=== PATIENT | male | born 1940 | race Caucasian/White ===

== ENCOUNTER 2018-04-13 17:03 | Inpatient (IN) | payer MEDICARE ==
[~2018-04-13] VITALS: Ht 175.3 cm; Wt 84.1 kg
--- NOTE | ~2018-04-13 | MORECARE ---
CASE MANAGEMENT DISCHARGE SUMMARY PATIENT: Keturah YAÑEZ UNIT: [id number] ADM DATE: 04/13/18 AGE: 78 : 38 SEX: M ROOM/BED: D.2238 AUTHOR: JOAN HAYNES PHYSICIAN: REFERRING PHYSICIAN: GREER SEBASTIAN MD DATE OF SERVICE: 04/15/18 Discharge Plan Patient Name: Keturah YAÑEZ [facility] [facility] 1940 Planned Disposition: Home Anticipated Discharge Date: Discharge Date: Expected LOS: Initial Reviewer: [email or web address] Initial Review Date: 04/14/2018 Generated: 04/15/18 12:54 pm DCP- Discharge Planning Updated by [email or web address]: Angelina Swenson on 04/14/18 10:[address] Spoke with Muriel at the [facility] in [place] and informed of admission to our hospital last night. She took admitting information and states he is on the list. CM will continue to follow and assist with discharge planning/needs. Last DP export: 04/14/18 10:34 a Patient Name: Keturah YAÑEZ Page [id number] at 1154 All edits/amendments must be made on the electronic document DICTATION DATE: 04/15/18 115 BELT REPAIRER: JANEE 04/15/18 1154 RPT#: [id number] DC DATE: STATUS: ADM IN [facility] [address] [place] [address] END OF REPORT
--- NOTE | ~2018-04-13 | MORECARE ---
CASE MANAGEMENT DISCHARGE SUMMARY PATIENT: Keturah YAÑEZ UNIT: [id number] ADM DATE: 04/13/18 AGE: 78 : 38 SEX: M ROOM/BED: D.2238 AUTHOR: JOAN HAYNES PHYSICIAN: REFERRING PHYSICIAN: GREER SEBASTIAN MD DATE OF SERVICE: 04/15/18 Discharge Plan Patient Name: Keturah YAÑEZ Facility: [facility]:[place] : 1940 Planned Disposition: Home Anticipated Discharge Date: Discharge Date: Expected LOS: Initial Reviewer: [email or web address] Initial Review Date: 04/14/2018 Generated: 04/15/18 1:02 pm Comments DCP- Discharge Planning Updated by [email or web address]: Angelina Swenson on 04/15/18 10:[address] Patient Name: Keturah YAÑEZ Admission Status: ER Accout number: [id number] Admission Date: 04-13-2018 : 1940 Admission Diagnosis: Attending: GRERE SEBASTIAN Current LOS: 2 Anticipated DC Date: Planned Disposition: Home Primary Insurance: MEDICARE A & B Discharge Planning Comments: CM met with patient to discuss discharge planning, he is alone in the room. States he lives alone. States he is independent with all ADL's and IADL's. States his daughter, Regla, will drive him home at discharge. States he does have a nebulizer that he uses PRN and the [facility] supplies the neb meds. States he does not have any other DME or need any DME. I discussed home health and he declines at this time. No needs identified. CM will continue to follow and assist with discharge planning/needs. Account Analyst: Angelina Swenson DCP- Discharge Planning Updated by [email or web address]: Angelina Swenson on 04/14/18 10:[address] Spoke with Muriel at the [facility] in [place] and informed of admission to our hospital last night. She took admitting information and states he is on the list. CM will continue to follow and assist with discharge planning/needs. DCPIA - Discharge Planning Initial Assessment Updated by [email or web address]: Angelina Swenson on 04/15/18 11:54 am * Is the patient Alert and Oriented? Yes * How many steps to enter\exit or inside your home? 2/0 * PCP [facility] or [place] * [facility] * Preadmission Environment Home Alone * ADLs Independent * Equipment Nebulizer * List name and contact numbers for known caregivers / representatives who currently or will assist patient after discharge: Regla Garces - R - [phone] * Verbal permission to speak to the caregivers and representatives has been obtained from the patient. Yes * Community resources currently utilized None * Additional services required to return to the preadmission environment? No * Can the patient safely return to the preadmission environment? Yes * Has this patient been hospitalized within the prior 30 days at any hospital? No Last DP export: 04/15/18 10:54 a Patient Name: Keturah YAÑEZ Page [id number] at 1202 All edits/amendments must be made on the electronic document DICTATION DATE: 04/15/18 1202 GLOBAL PROCESS OWNER: JANEE 04/15/18 1202 RPT#: [id number] DC DATE: STATUS: ADM IN [facility] [address] [place] [address] END OF REPORT
--- NOTE | ~2018-04-13 | MORECARE ---
CASE MANAGEMENT DISCHARGE SUMMARY PATIENT: Keturah YAÑEZ UNIT: [id number] ADM DATE: 04/13/18 AGE: 78 : 38 SEX: M ROOM/BED: D.2238 AUTHOR: JOAN HAYNES PHYSICIAN: REFERRING PHYSICIAN: GREER SEBASTIAN MD DATE OF SERVICE: 04/15/18 Discharge Plan Patient Name: Keturah YAÑEZ Facility: [facility]:[place] : 1940 Planned Disposition: Home Anticipated Discharge Date: Discharge Date: 04/15/2018 Expected LOS: 0 Initial Reviewer: [email or web address] Initial Review Date: 04/14/2018 Generated: 04/15/18 4:28 pm Comments DCP- Discharge Planning Updated by [email or web address]: Angelina Swenson on 04/15/18 10:[address] Patient Name: Keturah YAÑEZ Admission Status: ER Accout number: [id number] Admission Date: 04-13-2018 : 1940 Admission Diagnosis: Attending: GREER SEBASTIAN Current LOS: 2 Anticipated DC Date: Planned Disposition: Home Primary Insurance: MEDICARE A & B Discharge Planning Comments: CM met with patient to discuss discharge planning, he is alone in the room. States he lives alone. States he is independent with all ADL's and IADL's. States his daughter, Regla, will drive him home at discharge. States he does have a nebulizer that he uses PRN and the [facility] supplies the neb meds. States he does not have any other DME or need any DME. I discussed home health and he declines at this time. No needs identified. CM will continue to follow and assist with discharge planning/needs. Technical Support Professional: Angelina Swenson DCP- Discharge Planning Updated by [email or web address]: Angelina Swenson on 04/14/18 10:[address] Spoke with Muriel at the [facility] in [place] and informed of admission to our hospital last night. She took admitting information and states he is on the list. CM will continue to follow and assist with discharge planning/needs. DCPIA - Discharge Planning Initial Assessment Updated by [email or web address]: Angelina Swenson on 04/15/18 11:54 am * Is the patient Alert and Oriented? Yes * How many steps to enter\exit or inside your home? 2/0 * PCP [facility] Doctor at [facility] or [place] * [facility] * Preadmission Environment Home Alone * ADLs Independent * Equipment Nebulizer * List name and contact numbers for known caregivers / representatives who currently or will assist patient after discharge: Regla Garces - [facility] - [phone] * Verbal permission to speak to the caregivers and representatives has been obtained from the patient. Yes * Community resources currently utilized None * Additional services required to return to the preadmission environment? No * Can the patient safely return to the preadmission environment? Yes * Has this patient been hospitalized within the prior 30 days at any hospital? No Last DP export: 04/15/18 11:02 a Patient Name: Keturah YAÑEZ Page [id number] at 1529 All edits/amendments must be made on the electronic document DICTATION DATE: 04/15/18 152 DIRECTOR EMERGENCY SERVICES: JANEE 04/15/181527 RPT#: [id number] DC DATE:04/15/18 STATUS: DIS IN [facility] [address] [place] [address] END OF REPORT
--- NOTE | ~2018-04-13 | MORECARE ---
CASE MANAGEMENT DISCHARGE SUMMARY PATIENT: Keturah YAÑEZ D UNIT: [id number] ADM DATE: 04/13/18 AGE: 78 : 38 SEX: M ROOM/BED: D.2238 AUTHOR: JOAN HAYNES PHYSICIAN: REFERRING PHYSICIAN: GREER SEBASTIAN MD DATE OF SERVICE: 04/14/18 Discharge Plan Patient Name: Keturah YAÑEZ [facility] : 1940 Planned Disposition: Home Anticipated Discharge Date: Discharge Date: Expected LOS: Initial Reviewer: [email or web address] Initial Review Date: 04/14/2018 Generated: 04/14/18 12:34 pm DCP- Discharge Planning Updated by [email or web address]: Angelina Swenson on 04/14/18 10:[address] Spoke with Muriel at the [facility] in [place] and informed of admission to our hospital last night. She took admitting information and states he is on the list. CM will continue to follow and assist with discharge planning/needs. Patient Name: Keturah YAÑEZ Page [id number] at 1135 All edits/amendments must be made on the electronic document DICTATION DATE: 04/14/181133 LOG TURNER: JANEE 04/14/181133 RPT#: [id number] DC DATE: STATUS: ADM IN [facility] [address] [place] [address] END OF REPORT
[2018-04-13] MEDS ORDERED: GABAPENTIN100 MG PO (17:24)
[2018-04-13] MEDS ORDERED: LEVOXYL125 MCG PO (17:24)
[2018-04-13] MEDS ORDERED: PROSCAR5 MG PO (17:25)
[2018-04-13] MEDS ORDERED: MOBIC7.5 MG PO ×2 (17:25→17:26)
[2018-04-13 17:42] LABS: BASOPHILS 0.2 % (0-2); EOSINOPHILS 0.3 % (0-7); HEMATOCRIT 41.9 % (42.0-54.0); HEMOGLOBIN 13.4 g/dL (13.5-17.5); IMMATURE GRANULOCYTES 0.3 % (0-5); LYMPHOCYTES 7.1 % (15-50); MCH 32.1 pg (26.0-34.0); MCV 100.2 fL (80.0-100.0); MEAN PLATELET VOLUME 12.2 fL (7.4-10.4); MONOCYTES 6.5 % (2-11); NEUTROPHILS 85.6 % (40-80); PLATELET COUNT 143 10x3/uL (130-400); RBC 4.18 10x6/uL (4.20-6.10); RDW 13.9 % (11.5-14.5); WBC 12.4 10x3/uL (4.8-10.8)
[2018-04-13 18:11] LABS: ALBUMIN 3.9 g/dL (3.4-5.0); ALKALINE PHOSPHATASE 92 U/L (46-116); ALT (SGPT) 13 U/L (10-68); BILIRUBIN - TOTAL 0.35 mg/dL (0.2-1.3); CALC OSMOLALITY 293 mosm/kg (275-300); CALCIUM 8.1 mg/dL (8.5-10.1); CARBON DIOXIDE 23.2 mmol/L (21.0-32.0); CHLORIDE - SERUM 107 mmol/L (98-107); CREATININE - SERUM 1.3 mg/dL (0.6-1.3); GLUCOSE 136 mg/dL (74-106); POTASSIUM - SERUM 4.1 mmol/L (3.5-5.1); SODIUM 143 mmol/L (136-145); UREA NITROGEN 32 mg/dL (7-18); eGFR NON AFRICAN AMERICAN 56 mL/min (90-120)
[2018-04-13 18:12] LABS: INR 1.05 (0.85-1.17); PROTIME 13.2 SECONDS (11.6-15.0)
[2018-04-13 18:13] LABS: APTT 42.9 SECONDS (22.8-39.4)
[2018-04-13 18:27] LABS: CKMB 1.1 U/L (0.0-3.6); CREATINE KINASE 103 UL (21-232); MAGNESIUM - SERUM 1.9 mg/dL (1.8-2.4); TROPONIN-I < 0.017 ng/mL (0.000-0.060)
[2018-04-13 19:49] LABS: APPEARANCE CLEAR (CLEAR); BILIRUBIN NEGATIVE (NEGATIVE); COLOR YELLOW (YELLOW); GLUCOSE NEGATIVE (NEGATIVE); KETONE NEGATIVE (NEGATIVE); NITRITE NEGATIVE (NEGATIVE); PROTEIN NEGATIVE (NEGATIVE); SPECIFIC GRAVITY 1.015 (1.005-1.020); UROBILINOGEN NORMAL (NORMAL)
[2018-04-13 21:31] VITALS: BP 167/68
[2018-04-13 23:52] VITALS: BP 167/68; BMI 27.3
[2018-04-14 06:19] VITALS: BP 122/54
[2018-04-14] MEDS ORDERED: VENTOLIN HFA18 GM INH (08:39)
[2018-04-14] MEDS ORDERED: FLUTICASONE PRO16 GM NASAL (08:42)
[2018-04-14] MEDS ORDERED: PRINZIDE 20/12.1 TA1 PO (08:43)
[2018-04-14] MEDS ORDERED: METOPROLOL TART25 MG PO (08:44)
[2018-04-14] MEDS ORDERED: HYDRALAZINE HC100 MG PO (08:44)
[2018-04-14] MEDS ORDERED: ASMANEX0.24 GM INH (08:45)
[2018-04-14] MEDS ORDERED: FLOMAX0.4 MG PO (08:48)
[2018-04-14] MEDS ORDERED: ZANTAC300 MG (08:52)
[2018-04-14 09:05] LABS: BASOPHILS 0.1 % (0-2); EOSINOPHILS 0.1 % (0-7); HEMATOCRIT 38.5 % (42.0-54.0); HEMOGLOBIN 12.8 g/dL (13.5-17.5); IMMATURE GRANULOCYTES 0.2 % (0-5); LYMPHOCYTES 8.1 % (15-50); MCH 31.8 pg (26.0-34.0); MCHC 33.2 g/dL (31.0-37.0); MEAN PLATELET VOLUME 12.2 fL (7.4-10.4); MONOCYTES 9.8 % (2-11); NEUTROPHILS 81.7 % (40-80); PLATELET COUNT 141 10x3/uL (130-400); RBC 4.02 10x6/uL (4.20-6.10); RDW 13.7 % (11.5-14.5); WBC 10.8 10x3/uL (4.8-10.8)
[2018-04-14 09:06] LABS: MCV 95.8 fL (80.0-100.0)
[2018-04-14 09:08] VITALS: BP 127/55
[2018-04-14 09:11] LABS: ANION GAP 15.4 mmol/L (8-16); CALCIUM 7.6 mg/dL (8.5-10.1); CARBON DIOXIDE 23.6 mmol/L (21.0-32.0); CREATININE - SERUM 1.3 mg/dL (0.6-1.3)
[2018-04-14 17:07] VITALS: BP 127/44
[2018-04-14 17:58] LABS: ERYTHROCYTE SEDIMENTATION RATE 15 mm/hr (0-20)
[2018-04-14 20:45] VITALS: BP 124/47
[2018-04-15 01:09] VITALS: BP 134/55
[2018-04-15 04:49] VITALS: BP 140/53
[2018-04-15 06:25] LABS: BASOPHILS 0.1 % (0-2); EOSINOPHILS 0.6 % (0-7); HEMATOCRIT 34.3 % (42.0-54.0); HEMOGLOBIN 11.3 g/dL (13.5-17.5); IMMATURE GRANULOCYTES 0.4 % (0-5); LYMPHOCYTES 10.9 % (15-50); MCH 31.5 pg (26.0-34.0); MCHC 32.9 g/dL (31.0-37.0); MCV 95.5 fL (80.0-100.0); MEAN PLATELET VOLUME 12.7 fL (7.4-10.4); MONOCYTES 8.3 % (2-11); NEUTROPHILS 79.7 % (40-80); PLATELET COUNT 122 10x3/uL (130-400); RBC 3.59 10x6/uL (4.20-6.10); RDW 13.5 % (11.5-14.5)
[2018-04-15 06:26] LABS: WBC 7.7 10x3/uL (4.8-10.8)
[2018-04-15 06:54] LABS: ANION GAP 14.5 mmol/L (8-16); CALCIUM 7.7 mg/dL (8.5-10.1); CARBON DIOXIDE 23.6 mmol/L (21.0-32.0); CREATININE - SERUM 1.3 mg/dL (0.6-1.3); POTASSIUM - SERUM 4.1 mmol/L (3.5-5.1)
[2018-04-15 08:33] VITALS: BP 126/49
[2018-04-15 08:53] VITALS: Ht 175.3 cm; Wt 84.1 kg
== END 2018-04-15 15:06 | disposition home or self-care (01) | DRG 194 ==
LOC: D.ER 17:03 → D.MS 19:20
PROVIDERS: Family Medicine; Internal Medicine Nephrology
DX: J18.9 Pneumonia, unspecified organism (principal); J98.11 Atelectasis; N17.9 Acute kidney failure, unspecified; I10 Essential (primary) hypertension; J44.9 Chronic obstructive pulmonary disease, unspecified; I25.10 Atherosclerotic heart disease of native coronary artery without angina pectoris; M54.12 Radiculopathy, cervical region

== ENCOUNTER → 2020-08-17 09:58 | Outpatient (CLI) | payer MEDICARE ==
[~2020-08-17 09:58] MED LIST: ASMANEX0.24 GM INH; FLOMAX0.4 MG PO; FLUTICASONE PRO16 GM; FLUTICASONE PRO16 GM NASAL; GABAPENTIN100 MG PO; HYDRALAZINE HC100 MG PO; LEVOXYL125 MCG PO; LIPITOR80 MG; METOPROLOL TART25 MG PO; MOBIC7.5 MG PO; PREDNISONE10 MG PO; PRINZIDE 20/12.1 TA1 PO; PROSCAR5 MG PO; VENTOLIN HFA18 GM INH; ZANTAC300 MG
== END | disposition home or self-care (01) ==
LOC: D.LAB 09:58
PROVIDERS: ATTEND Internal Medicine Pulmonary Disease
DX: J44.9 Chronic obstructive pulmonary disease, unspecified (principal)

== ENCOUNTER → 2020-08-23 09:14 | Outpatient (CLI) | payer MEDICARE | END | disposition home or self-care (01) | LOC: D.RT 09:14 | PROVIDERS: ATTEND Internal Medicine Pulmonary Disease | DX: J44.9 Chronic obstructive pulmonary disease, unspecified (principal); Z11.52 Encounter for screening for COVID-19 ==